=== PATIENT | male | born 1960 | race Caucasian/White ===

== ENCOUNTER 2023-01-27 08:02 | Outpatient (RCR) | payer OTHER, SELFPAY | END 2023-01-27 23:59 | disposition home or self-care (01) | LOC: RPT 08:02 | PROVIDERS: ATTENDING PHYSICIAN Orthopaedic Surgery Sports Medicine; FAMILY PHYSICIAN Family Medicine | DX: Z47.89 Encounter for other orthopedic aftercare (principal); M25.512 Pain in left shoulder | CPT/HCPCS: 97010; 97110; 97140 ==

== ENCOUNTER 2023-03-10 07:21 | Outpatient (RCR) | payer OTHER, SELFPAY | END 2023-03-10 23:59 | disposition home or self-care (01) | LOC: RPT 07:21 | PROVIDERS: ATTENDING PHYSICIAN Orthopaedic Surgery Sports Medicine; FAMILY PHYSICIAN Family Medicine | DX: Z47.89 Encounter for other orthopedic aftercare (principal); M25.512 Pain in left shoulder; Z73.6 Limitation of activities due to disability; M62.81 Muscle weakness (generalized) | CPT/HCPCS: 97110; 97140 ==

== ENCOUNTER → 2024-01-09 06:32 | Outpatient (REF) | payer OTHER, SELFPAY | LOC: MRI 3T 06:32 | PROVIDERS: ATTENDING PHYSICIAN Orthopaedic Surgery Hand Surgery; FAMILY PHYSICIAN Family Medicine | DX: S69.92XA Unspecified injury of left wrist, hand and finger(s), initial encounter (principal); S62.155A Nondisplaced fracture of hook process of hamate [unciform] bone, left wrist, initial encounter for closed fracture | CPT/HCPCS: 73221 ==

== ENCOUNTER → 2024-11-18 19:42 | Outpatient (REF) | payer OTHER, SELFPAY | LOC: PAVMRI 19:42 | PROVIDERS: ATTENDING PHYSICIAN Orthopaedic Surgery Hand Surgery; FAMILY PHYSICIAN Family Medicine | DX: M25.532 Pain in left wrist (principal); S62.155A Nondisplaced fracture of hook process of hamate [unciform] bone, left wrist, initial encounter for closed fracture | CPT/HCPCS: 73221 ==